=== PATIENT | female | born 1985 | race Caucasian/White ===

== ENCOUNTER 2019-01-31 18:38 | Emergency (ER) | payer OTHER ==
[~2019-01-31] VITALS: Ht 154.9 cm; Wt 91.8 kg
[~2019-01-31 18:38] MED LIST: GLYB2.5 PO
[2019-01-31] MEDS ORDERED: BENZONATATE 100 MG CAPSULE PO ONE (20:30)
[2019-01-31] MEDS ORDERED: KETOROLAC TROMETHAMINE 30 MG/ML VIAL IM ONE (20:30)
[2019-01-31 22:15] VITALS: BP 121/72
== END 2019-01-31 22:19 | disposition home or self-care (01) ==
LOC: EMS 18:43
DX: S91.202A Unspecified open wound of left great toe with damage to nail, initial encounter (principal); J06.9 Acute upper respiratory infection, unspecified; Z88.0 Allergy status to penicillin; Z88.6 Allergy status to analgesic agent; W22.8XXA Striking against or struck by other objects, initial encounter; Y93.89 Activity, other specified; Y92.89 Other specified places as the place of occurrence of the external cause; Y99.8 Other external cause status
CPT/HCPCS: 73630; 87430; 96372; 99284; J1885

== ENCOUNTER 2022-05-21 16:55 | Emergency (ER) | payer OTHER ==
[~2022-05-21] VITALS: Ht 157.5 cm; Wt 90.0 kg
[~2022-05-21 16:55] MED LIST changes: -GLYB2.5 PO; +GLYB2.5T76 PO
[2022-05-21] MEDS ORDERED: METF-1211 PO (17:12)
[2022-05-21 17:21] LABS: GLUCOMETER DEV NAME(LOC) ERT.5; GLUCOSE,POINT OF CARE 314 MG/DL (70-110)
[2022-05-21] MEDS ORDERED: SILV20CR11 TP (18:49)
[2022-05-21] MEDS: SILVER SULFADIAZINE 1% 25 GM CREAM TP ONE (18:55)
[2022-05-21] MEDS: HYDROCODONE/ACETAMINOPHEN 5-325 MG TABLET PO ONE (18:55)
[2022-05-21] MEDS: PERTUSS(ACELL),DIPH,TET VAC/PF 0.5 ML SYRINGE IM. ONE (18:57)
[2022-05-21 19:25] VITALS: BP 140/80
== END 2022-05-21 19:26 | disposition home or self-care (01) ==
LOC: EMS 16:56
DX: T23.101A Burn of first degree of right hand, unspecified site, initial encounter (principal); Z88.0 Allergy status to penicillin; Z88.8 Allergy status to other drugs, medicaments and biological substances; Z79.84 Long term (current) use of oral hypoglycemic drugs; X10.2XXA Contact with fats and cooking oils, initial encounter; Y93.89 Activity, other specified; Y92.89 Other specified places as the place of occurrence of the external cause; Y99.8 Other external cause status
CPT/HCPCS: 16000; 82962; 90471; 90715; 99283